=== PATIENT | female | born 1950 | race American Indian/Alaskan Native ===

== ENCOUNTER 2019-05-23 09:47 | Outpatient (CLI) | payer MEDICARE, OTHER ==
--- NOTE | 2019-05-23 10:44 | XRay Report ---
CHEST 2 VIEWS INDICATION: COSTAL MARGIN PAIN/PLEURODYNIA. COMPARISON: None. FINDINGS: Support devices: None. Heart: Within normal limits. Pulmonary vasculature: Normal. Lungs/pleura: No acute air space or interstitial disease. Lingular subsegmental atelectasis versus sc ar. No pleural effusion. No pneumothorax. Additional findings: Degenerative change in the spine. No spine or rib fractures identified.. IMPRESSION: 1. Lingular subsegmental atelectasis versus scar. 2. No pneumonia or pleural effusion. Signer Name: Durga Song MD Signed: 05/23/2019 10:40 AM Workstation Name: [id number]
== END 2019-05-23 09:48 | disposition home or self-care (01) ==
LOC: SPVIMAG 09:47
PROVIDERS: ATTEND Internal Medicine
DX: R07.81 Pleurodynia (principal)
CPT/HCPCS: 71046

== ENCOUNTER 2019-07-18 13:51 | Outpatient (CLI) | payer MEDICARE, OTHER ==
--- NOTE | 2019-07-19 09:44 | Mammography Report ---
BONE DEXA CLINICAL: Postmenopausal osteopenia. TECHNIQUE: 2 site bone DEXA performed on an Hologic scanner. FINDINGS: The average BMD of the lumbar spine L1-L4 is 0.950g/cm squared with a T score of -1.8 and a Z score o f +0.4. The average total BMD of the left hip is 1.069 g/cm squared with a T score of +0.2and a Z score of +1 .3. The left femoral neck BMD is 0.797 g/cm squared with a T score of -1.1 and a Z score of +0.3. IMPRESSION: 1. WHO classification: Osteopenia with increased fracture risk based on spine measurements. 2. WHO classification Osteopenia with increased fracture risk based on left femoral neck measurements . RECOMMENDATION: Clinical correlation and routine screening. Definitions: BMD equal bone mineral density T score = BMD related to peak bone mass of young adult (Luce expressed an standard deviation) Z score = age-matched BMD expressed in SD World health organization (WHO) diagnostic criteria Normal T score greater than equal to 1 standard deviation Osteopenia T score between -1 and -2.4 standard deviation Osteoporosis T score -2.5 standard deviation or below. Note: BMD is not the only risk factor for fracture; also consider factors such as the patient's age, risk of falling, previous osteoporotic fracture, family history of osteoporotic fractures, current sm oker and low body weight. Z scores are not calculated if greater than 80 years of age. Signer Name: Durga Song MD Signed: 07/19/2019 9:40 AM Workstation Name: [id number]
== END 2019-07-18 13:52 | disposition home or self-care (01) ==
LOC: SPVWC 13:51
PROVIDERS: ATTEND Internal Medicine
DX: Z13.820 Encounter for screening for osteoporosis (principal); Z78.0 Asymptomatic menopausal state
CPT/HCPCS: 77080